=== PATIENT | female | born 1970 | race Caucasian/White ===

== ENCOUNTER 2016-11-01 20:32 | Emergency (ER) | payer MEDICAID ==
[2016-11-01] MEDS ORDERED: BACITRACIN OINT TOP STA (21:21)
[2016-11-01] MEDS ORDERED: BACITRACIN OINT TOP ONE (21:37)
--- NOTE | 2016-11-01 22:15 | XRAY Preliminary Report ---
Exam: XR Knee 3 View RT IMPRESSION: Normal knee radiography. [facility] SITE ID: [id number]
[2016-11-01 22:17] VITALS: BP 136/89
--- NOTE | 2016-11-01 22:17 | XRAY Report ---
EXAM: RIGHT KNEE RADIOGRAPHY EXAM DATE: 11/01/2016 09:41 PM. CLINICAL HISTORY: Fall. Knee pain. COMPARISON: None. TECHNIQUE: 3 views. FINDINGS: Bones: Normal. No fractures or bone lesions. Joints: Normal. No effusion. No subluxations. Soft Tissues: Normal. No soft tissue swelling. IMPRESSION: Normal knee radiography. [facility] Referring Provider Line: [phone] SITE ID: [id number]
--- NOTE | 2016-11-01 22:20 | ED Physician Documentation ---
PD HPI LOWER EXT INJURY - Stated complaint Stated Complaint: GLF - R KNEE - Chief complaint Chief Complaint: General - History obtained from History obtained from: Patient - History of Present Illness PD HPI LOW EXT INJURY LOCATION: Right, Knee Type of injury: Fall Where injury occurred: Home Timing - onset: How many minutes ago (30) Timing - details: Abrupt onset Improved by: Rest, Ice, Immobilization Worsened by: Moving, Palpating Associated symptoms: Swelling Similar symptoms before: Has not had sx before Recently seen: Not recently seen - Additional information Additional information: Patient is a 46 year old female with no significant past medical history who is presenting to the emergency department for knee pain. Patient states that she was stepping over a baby gate when her flip flop got caught on the gate. Patient ended up falling forward on her right knee and right elbow. Patient denied any head trauma or loc. Review of Systems Constitutional: denies: Fever, Chills Eyes: denies: Loss of vision Ears: denies: Drainage/discharge Nose: denies: Epistaxis Throat: denies: Dental pain / toothache GI: denies: Nausea, Vomiting Skin: reports: Abrasion (s) Musculoskeletal: reports: Extremity pain, Joint pain, Extremity swelling Neurologic: denies: Generalized weakness, Focal weakness, Numbness Immunocompromised: denies: Immunocompromised PD PAST MEDICAL HISTORY - Past Medical History Past Medical History: Yes Cardiovascular: Hypertension - Past Surgical History Past Surgical History: Yes General: Cholecystectomy - Present Medications Home Medications: Ambulatory Orders Medication Instructions Recorded Confirmed Magnesium 250 mg PO DAILY 11/01/16 11/01/16 Norethindrone-Ethinyl Estrad 1 each PO DAILY 11/01/16 11/01/16 [Gildagia] Potassium Chloride 10 meq PO DAILY 11/01/16 11/01/16 metFORMIN [Glucophage] 500 mg PO ONCE 11/01/16 11/01/16 - Allergies Allergies/Adverse Reactions: Allergies Allergy/AdvReac Type Severity Reaction Status Date / Time No Known Drug Allergies Allergy Verified 11/01/16 20:38 - Social History Does the pt smoke?: No Smoking Status: Never smoker Does the pt drink ETOH?: Yes Does the pt have substance abuse?: No - Immunizations Immunizations: TDAP current <10years - POLST Patient has POLST: No PD ED PE NORMAL - Vitals Vital signs reviewed: Yes - General General: Alert and oriented X 3, No acute distress, Well developed/nourished - HEENT HEENT: Atraumatic, PERRL, Pharynx benign - Neck Neck: No bony TTP - Cardiac Cardiac: RRR, No murmur - Respiratory Respiratory: No respiratory distress - Abdomen Abdomen: Soft, Non tender, Non distended - Derm Derm: Normal color - Neuro Neuro: Alert and oriented X 3, No motor deficit, No sensory deficit, Normal speech - Psych Psych: Normal mood PD ED PE EXPANDED - Extremities Extremities: Right elbow (small abrasions on right elbow), Right knee ( tenderness to palpation, no effusion, no abrasion) Results - Vitals Vitals: Vital Signs - 24 hr 11/01/16 11/01/16 20:34 22:16 Temperature 36.4 C L 37.0 C Heart Rate 101 H 86 Respiratory 18 16 Rate Blood Pressure 150/94 H 136/89 H O2 Saturation 98 97 Oxygen O2 Source Room air - Rads (name of study) knee x-ray Radiology: Final report received (no acute fracture or dislocation) PD MEDICAL DECISION MAKING - ED course Complexity details: reviewed old records, reviewed results, re-evaluated patient , considered differential, d/w patient ED course: Patient was seen and examined at bedside. Patient was not and was sent for imaging. when patient returned the results were reviewed. there was no acute fracture or dislocation. Patient's wound were dressed with bacitracin and patient was up to date on tdap. patient required no further work up and was stable for discharge with outpatient follow up. Departure - Departure Disposition: 01 Home, Self Care Clinical Impression: Contusion of knee, right Condition: Good Instructions: ED Contusion Lower Ext Comments: Your diagnostics today were within normal limits. there was no acute fracture or dislocation. You can expect to be in more pain over the next few days. You should continue to ice your wounds. You can take ibuprofen 600mg, and tylenol 1000mg as needed for pain. You should try to keep the area elevated and you should try to stay active on it as to keep the joint loose. You should follow up with your pmd if your symptoms persist for more than a week. You may return to the emergency department at any time for new, worsening or uncontrollable symptoms. Discharge Date/Time: 11/01/16 22:48
== END 2016-11-01 22:48 | disposition home or self-care (01) ==
LOC: ED 20:32
DX: S80.01XA Contusion of right knee, initial encounter (principal); S50.311A Abrasion of right elbow, initial encounter; W01.0XXA Fall on same level from slipping, tripping and stumbling without subsequent striking against object, initial encounter; Y92.019 Unspecified place in single-family (private) house as the place of occurrence of the external cause; I10 Essential (primary) hypertension
CPT/HCPCS: 73562; 99283; A9270

== ENCOUNTER 2018-02-04 11:25 | Outpatient (CLI) | payer MEDICAID, OTHER ==
--- NOTE | 2018-02-07 08:39 | Mammography Report ---
Reason: SCREENING MAMMO Procedure Date: 02/04/2018 Accession Number: [id number] / [id number] Procedure: REX - Screening Mammo Dig Bilat CPT Code: FULL RESULT: EXAM: Screening Mammo Dig Bilat DATE: 02/04/2018 12:22 PM CLINICAL HISTORY: Routine screening TECHNIQUE: Bilateral CC and MLO views were obtained. COMPARISON: 03/08/2016, 03/02/2015 and 10/06/2013 FINDINGS: Scattered fibroglandular densities are present. There is been no significant interval change. No suspicious masses, clustered microcalcifications, or regions of architectural distortion are identified. IMPRESSION: Negative examination RECOMMENDATION: Routine annual screening unless otherwise clinically indicated. BIRADS CATEGORY 1: Negative STANDARD QUALIFYING STATEMENTS: 1. This examination was reviewed with the aid of Computer-Aided Detection (CAD). 2. A negative or benign imaging report should not delay biopsy if clinically suspicious findings are present. Consider surgical consultation if warrented. More than 5% of cancers are not identified by imaging. 3. Dense breasts may obscure an underlying neoplasm.
== END 2018-02-04 11:26 | disposition home or self-care (01) ==
LOC: DI 11:25
PROVIDERS: ATTEND Specialist
DX: Z12.31 Encounter for screening mammogram for malignant neoplasm of breast (principal)
CPT/HCPCS: 77067

== ENCOUNTER 2019-03-20 14:41 | Outpatient (CLI) | payer OTHER ==
--- NOTE | 2019-03-23 10:55 | Mammography Report ---
Reason: SCREENING MAMMO Procedure Date: 03/20/2019 Accession Number: [id number] / [id number] Procedure: [facility] - Screening Mammo Dig Bilat CPT Code: FULL RESULT: EXAM: Screening Mammo Dig Bilat DATE: 03/20/2019 3:25 PM CLINICAL HISTORY: Routine screening TECHNIQUE: (B) - Bilateral CC and MLO views were obtained. COMPARISON: 02/04/2018 and 10/06/2013 PARENCHYMAL PATTERN: (A) - The breasts demonstrate scattered fibroglandular densities bilaterally. FINDINGS: No significant interval change. There are no suspicious masses, calcifications, or areas of distortion. IMPRESSION: Negative examination. BI-RADS category 1. RECOMMENDATION: (ANNUAL) - Recommend routine annual screening mammography. BI-RADS CATEGORY: (1) - Negative. STANDARD QUALIFYING STATEMENTS: 1. This examination was not reviewed with the aid of Computer-Aided Detection (CAD). 2. A negative or benign imaging report should not preclude biopsy if clinically suspicious findings are present. 3. Dense breasts may obscure an underlying neoplasm. 4. This examination was reviewed without the aid of 3D breast imaging (tomosynthesis).
== END 2019-03-20 14:42 | disposition home or self-care (01) ==
LOC: DI.N 14:41
DX: Z12.31 Encounter for screening mammogram for malignant neoplasm of breast (principal)
CPT/HCPCS: 77067